=== PATIENT | male | born 1970 | race Caucasian/White ===

== ENCOUNTER 2018-10-15 06:36 | Emergency (ER) | payer BC, OTHER ==
[2018-10-15 07:07] VITALS: BMI 27.5
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
[2018-10-15] MEDS ORDERED: IBUPROFEN 400 MG TABLET (FP) PO ONE ×2 (07:59→08:25)
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
[2018-10-15 10:19] VITALS: BP 125/78; PULSE 64; TEMP 98.1
== END 2018-10-15 10:18 | disposition home or self-care (01) ==
LOC: JER 06:36
DX: S39.82XA Other specified injuries of lower back, initial encounter (principal); M25.561 Pain in right knee; V63.5XXA Driver of heavy transport vehicle injured in collision with car, pick-up truck or van in traffic accident, initial encounter; Y92.412 Parkway as the place of occurrence of the external cause; W22.11XA Striking against or struck by driver side automobile airbag, initial encounter; Y93.89 Activity, other specified; Y99.8 Other external cause status
CPT/HCPCS: 73560-TC-RT-FY; 99283-25